=== PATIENT | male | born 1990 | race Caucasian/White ===

== ENCOUNTER 2016-12-18 01:07 | Emergency (ER) | payer SELFPAY ==
[~2016-12-18] VITALS: Ht 172.7 cm; Wt 76.2 kg
[2016-12-18 03:09] VITALS: BP 113/77
== END 2016-12-18 03:09 | disposition home or self-care (01) ==
LOC: ED 01:07
DX: L02.414 Cutaneous abscess of left upper limb (principal)
CPT/HCPCS: J0696; J2001

== ENCOUNTER 2016-12-20 18:34 | Emergency (ER) | payer SELFPAY ==
[~2016-12-20] VITALS: Ht 172.7 cm; Wt 76.4 kg
[2016-12-20 19:46] VITALS: BP 134/83
== END 2016-12-20 19:46 | disposition home or self-care (01) ==
LOC: ED 18:34
DX: Z48.00 Encounter for change or removal of nonsurgical wound dressing (principal)
CPT/HCPCS: J2001